=== PATIENT | female | born 1940 | race Caucasian/White ===

== ENCOUNTER 2021-06-15 04:21 | Emergency (ER) | payer MEDICARE ==
[~2021-06-15] VITALS: Ht 154.9 cm; Wt 81.8 kg
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
[2021-06-15] MEDS ORDERED: ACETAMINOPHEN 500 MG TABLET PO ONE (05:30)
[2021-06-15] MEDS ORDERED: BACITRACIN ZINC TOPICAL OINT PACKET. TP ONE (05:30)
[2021-06-15] MEDS ORDERED: LIDOCAINE 2% 20 ML VIAL. IJ ONE (05:30)
[2021-06-15] MEDS ORDERED: DIPHTH,PERTUSS(ACELL),TET TOX 0.5 ML DISP.SYRIN. VAX IM ONE (05:30)
[2021-06-15] MEDS ORDERED: CONTRAST GIVEN. MC PRN (05:45)
[2021-06-15] MEDS ORDERED: IOHEXOL 300 MG/ML 75 ML VIAL. IV ONE (05:45)
[2021-06-15] MEDS ORDERED: IOHEXOL 240 MG/ML 50ML VIAL. ONE (05:48)
--- NOTE | 2021-06-15 07:13 | RAD ---
EXAM: CT head, facial bones, and cervical spine without contrast INDICATION: Fall, pain COMPARISON: None TECHNIQUE: Axial CT imaging through the head, facial bones, and cervical spine without intravenous co ntrast. Sagittal and coronal reformats were obtained. One or more of the following individualized dose reduction techniques were utilized for this examinat ion: 1. Automated exposure control 2. Adjustment of the mA and/or kV according to patient size 3. Use of iterative reconstruction technique. FINDINGS: CT head: The ventricles and sulci are normal. There is mild periventricular and deep white matter hypoattenuat ion.. No-white matter differentiation is maintained. There is no intracranial hemorrhage, acute in farct, or mass lesion. Basal cisterns are clear. The skull and scalp are intact. There is mild mucosa l thickening in the ethmoid air cells. The remaining sinuses and mastoid air cells are clear. Globes and orbits are intact. CT facial bones: No acute fracture. There is mild mucosal thickening in the ethmoid air cells and inferior left maxill gabriele sinus. Remaining paranasal sinuses and mastoid air cells are clear. Globes and orbits are intact. Soft tissues normal. CT cervical spine: No acute fracture. There is minimal anterolisthesis at all levels throughout the cervical spine. Mild disc space narrowing, greatest at C4-C5. Moderate to severe facet arthrosis. There is moderate to se deann foraminal narrowing on the left at C3-C4 and C4-C5 and on the right at C5-C6. Moderate right for aminal narrowing at C3-C4 and C4-C5. No canal narrowing. Prevertebral soft tissues normal. There are coarse ossifications in the right thyroid lobe. Lung apices are clear. IMPRESSION: 1. No acute intracranial abnormality. 2. No acute facial fracture. 3. No acute osseous abnormality of the cervical spine. 4. Degenerative disc disease. Electronically signed by: Estela Johns MD (06/15/2021 7:10 AM) [facility]
--- NOTE | 2021-06-15 07:14 | RAD ---
CT CHEST AND ABDOMEN WITHOUT CONTRAST INDICATION: FALL, RUQ PAIN COMPARISON: None. TECHNIQUE: Multiple contiguous axial images were obtained throughout the chest and abdomen without the use of IV contrast. Axial images were reformatted into coronal and sagittal planes. One or more of the followi ng dose reduction techniques were utilized: Automated exposure control (AEC), Adjustment of mA and/or kV according to patient size, Use of iterative reconstruction technique such as ASiR, CT scan done a ccording to ALARA and image gently/image wisely. FINDINGS: Chest Findings: The thyroid is symmetric. There is no axillary, mediastinal, or hilar adenopathy, although evaluatio n of the tarun is limited without IV contrast. The thoracic aorta diameter is normal. The cardiac size is normal. Coronary artery atherosclerotic di sease There is no pericardial effusion. The central airways are patent. Mild clustered centrilobular nodules in the right middle and lower lo bes. No pleural abnormality. Abdomen findings: Evaluation of solid abdominal viscera is limited without the use of IV contrast. However, the liver, gallbladder, pancreas, and adrenal glands are unremarkable. Partial splenectomy. No hydronephrosis. Right renal simple cyst There is no significant mesenteric or retroperitoneal adenopathy identified, though evaluation is limited without intravenous contrast. There is no evidence of free intraperito ana laura fluid or pneumoperitoneum. Visualized portions of the bowel are grossly unremarkable. Mild aort oiliac atherosclerotic disease. Pelvis findings: The bladder and distal ureters are unremarkable. There is no significant pelvic ascites. No signifi cant iliac or inguinal adenopathy is identified. No acute osseous abnormality. IMPRESSION: 1. No evidence of major traumatic thoracic injury. No abdominal solid organ injury. 2. Mild clustered centrilobular nodules in the right middle and lower lobes, likely infectious bronch iolitis or aspiration bronchiolitis. Electronically signed by: Elliot Singh MD (06/15/2021 7:11 AM) [id number]
--- NOTE | 2021-06-15 07:15 | RAD ---
XR ABDOMEN COMP ACUTE INDICATION: Fall, pain . COMPARISON STUDY: None. FINDINGS: Lungs: Normal lung volume. No pulmonary mass or consolidation. The tracheobronchial tree and hilar st ructures are normal. Pleura: No pleural effusion or pneumothorax. Heart and Mediastinum: The cardiomediastinal silhouette is normal. The great vessels of the thorax ar e normal. Abdomen: Nonobstructive bowel gas pattern. No free air. IMPRESSION: No acute cardiopulmonary process. Nonobstructive bowel gas pattern Electronically signed by: Elliot Singh MD (06/15/2021 7:13 AM) [id number]
[2021-06-15 07:45] VITALS: BP 122/70
[2021-06-15] MEDS ORDERED: AMOX1TAB11 PO (07:50)
== END 2021-06-15 07:45 | disposition home or self-care (01) ==
LOC: ER 04:21
DX: S51.011A Laceration without foreign body of right elbow, initial encounter (principal); S20.211A Contusion of right front wall of thorax, initial encounter; S30.1XXA Contusion of abdominal wall, initial encounter; S00.83XA Contusion of other part of head, initial encounter; J21.9 Acute bronchiolitis, unspecified; M19.90 Unspecified osteoarthritis, unspecified site; F03.90 Unspecified dementia, unspecified severity, without behavioral disturbance, psychotic disturbance, mood disturbance, and anxiety; W06.XXXA Fall from bed, initial encounter; Y93.89 Activity, other specified; Y92.89 Other specified places as the place of occurrence of the external cause; Y99.8 Other external cause status
CPT/HCPCS: 12001; 70450; 70486; 71250; 72125; 74022; 74150; 90471; 90715; 99284; J2001